=== PATIENT | male | born 1950 | race Caucasian/White ===

== ENCOUNTER 2018-05-22 17:11 | Observation (INO) | payer MEDICARE, BC ==
--- NOTE | 2018-05-22 17:47 | EDM.PDOC ---
ED HPI GENERAL MEDICAL PROBLEM - General Chief Complaint: Upper Extremity Injury/Pain Stated Complaint: FELL GETTING OUT OF THE SHOWER Time Seen by Provider: 05/22/18 17:30 Source of Information: Reports: Patient History Limitations: Reports: No Limitations Right Upper Arm Pain Score (Numeric/FACES): 3 - Related Data Allergies Allergy/AdvReac Type Severity Reaction Status Date / Time contrast dye Allergy Hives Uncoded 05/22/18 17:16 Home Meds: Home Meds Famotidine 1 tab PO DAILY 05/22/18 [History] Gabapentin [Neurontin] 1 tab PO TID 05/22/18 [History] Minoxidil [Loniten] 15 mg PO DAILY 05/22/18 [History] Olmesartan/Hydrochlorothiazide [Benicar HCT 40-25 MG] 1 tab PO DAILY 05/22/18 [ History] Olmesartan/Hydrochlorothiazide [Olmesartan-Hctz 40-25 mg Tab] 1 tab PO DAILY [History] Sotalol [Betapace] 1 tab PO BID 05/22/18 [History] amLODIPine Besylate [Amlodipine Besylate] 1 tab PO DAILY 05/22/18 [History] hydrALAZINE HCl [Hydralazine HCl] 1 tab PO TID 05/22/18 [History] predniSONE [Prednisone] 1 tab PO ASDIRECTED 05/22/18 [History] Past Medical History Cardiovascular History: Reports: Afib, High Cholesterol, Hypertension Gastrointestinal History: Reports: GERD Musculoskeletal History: Reports: Fracture Neurological History: Reports: Other (See Below) Other Neuro History: 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 Musculoskeletal Surgical History: Reports: Hip Replacement, Knee Replacement, Other (See Below) Other Musculoskeletal Surgeries/Procedures:: ankle fracture repair. left knee replace, right hip replace. Social & Family History - Tobacco Use Smoking Status *Q: Never Smoker - Alcohol Use Days Per Week of Alcohol Use: 3 Number of Drinks Per Day: 1 Total Drinks Per Week: 3 - Recreational Drug Use Recreational Drug Use: No Review of Systems - Review of Systems Review Of Systems: See Below Constitutional: Reports: No Symptoms Eyes: Reports: No Symptoms Ears: Reports: No Symptoms Nose: Reports: No Symptoms Mouth/Throat: Reports: No Symptoms Respiratory: Reports: No Symptoms Cardiovascular: Reports: No Symptoms GI/Abdominal: Reports: No Symptoms Genitourinary: Reports: No Symptoms Musculoskeletal: Reports: Arm Pain Neurological: Denies: Confusion, Dizziness, Headache, Numbness, Tingling, Weakness Psychiatric: Reports: No Symptoms ED EXAM, GENERAL - Physical Exam Exam: See Below Free Text/Narrative:: Vernon is an alert and oriented 67 year old male presenting for complaints of right arm pain after a fall in the shower today at 1600. He denies LOC or any other injury. Exam Limited By: No Limitations General Appearance: Alert, WD/WN, Mild Distress Eye Exam: Bilateral Eye: EOMI, Normal Inspection, PERRL Ears: Normal External Exam, Normal Canal, Hearing Grossly Normal, Normal TMs Ear Exam: Bilateral Ear: Auricle Normal, Canal Normal, TM normal Nose: Normal Inspection, Normal Mucosa, No Blood Throat/Mouth: Normal Inspection, Normal Lips, Normal Gums, Normal Oropharynx, Normal Voice, No Airway Compromise Head: Atraumatic, Normocephalic Neck: Normal Inspection, Supple, Non-Tender, Full Range of Motion. No: Lymphadenopathy (R), Lymphadenopathy (L) Respiratory/Chest: No Respiratory Distress, Lungs Clear, Normal Breath Sounds, No Accessory Muscle Use, Chest Non-Tender Cardiovascular: Normal Peripheral Pulses, No Murmur Peripheral Pulses: 2+: Radial (L), Radial (R) Extremities: No Pedal Edema, Normal Capillary Refill, Arm Pain, Other ( deformity with decreased ROM to right arm/humerus. ) Neurological: Alert, Oriented, Normal Cognition Psychiatric: Normal Affect, Normal Mood Skin Exam: Warm, Dry, Intact, Normal Color, No Rash Lymphatic: No Adenopathy Course - Vital Signs Last Recorded V/S: Last Vital Signs Temp 37 C 05/22/18 17:59 Pulse 72 05/22/18 21:05 Resp 18 05/22/18 21:05 BP 126/68 05/22/18 21:05 Pulse Ox 98 05/22/18 21:05 - Orders/Labs/Meds Orders: Active Orders 24 hr Category Date Time Status Admission Status [Patient Status] [ADT] Routine ADT 05/22/18 21:35 Active Shoulder Comp Rt [CR] Stat Exams 05/22/18 17:53 Taken Shoulder wo Cont Rt [CT] Stat Exams 05/22/18 18:56 Taken Meds: Medications Discontinued Medications Generic Name Dose Route Start Last Admin Trade Name Leigh PRN Reason Stop Dose Admin Hydromorphone HCl 1 mg 05/22/18 17:52 05/22/18 18:04 Dilaudid IVPUSH 05/22/18 17:53 1 mg ONETIME ONE Administration Hydromorphone HCl 1 mg 05/22/18 19:47 05/22/18 19:51 Dilaudid IVPUSH 05/22/18 19:48 1 mg ONETIME ONE Administration Ondansetron HCl 4 mg 05/22/18 19:54 05/22/18 19:58 Zofran IVPUSH 05/22/18 19:55 4 mg ONETIME ONE Administration - Radiology Interpretation Free Text/Narrative:: Wet read of right humerus x-ray shows right humeral head impacted fracture. CT Results Date: 05/22/18 (CT impression: Acute, impacted, comminuted, oblique fracture of the surgical neck of the humerus with 20% medial displacement of the distal fracture fragment and mild valgus angulation. No sign of involvement of the articular surface of the humeral head. Minimal distraction of a fracture fragment arising from the superior portion of the lesser tuberosity. No sign of any additional fracture elsewhere in the shoulder. ) - Re-Assessments/Exams Free Text/Narrative Re-Assessment/Exam: 05/22/18 18:53 Shawn. [facility] telephoned back, we will do a scapulary Y x-ray and CT scan. 05/22/18 21:[address] scan report with Corey Kendrick, he recommends cuff and collar splint with jayde wrap right arm against thorax for stabilization. No need for surgical intervention at this time. Patient can follow up with Corey on FridayMay 25 for recheck here at [facility]. 05/22/18 21:35 Dr. Andre contacted for observation admit due to pain and difficulty ambulating secondary to peripheral neuropathy, use of cane with right arm dominant. Dr. Andre in agreement, patient in agreement. Vernon will be admitted as observation with pain control. Departure - Departure Time of Disposition: 21:35 Disposition: Refer to Observation Condition: Fair Clinical Impression: Comminuted right humeral fracture - Discharge Information *PRESCRIPTION DRUG MONITORING PROGRAM REVIEWED*: No *COPY OF PRESCRIPTION DRUG MONITORING REPORT IN PATIENT GUANAKITO: No Referrals: PCP,None [Primary Care Provider] - Forms: ED Department Discharge - My Orders Last 24 Hours: My Active Orders 05/22/18 17:53 Shoulder Comp Rt [CR] Stat 05/22/18 18:56 Shoulder wo Cont Rt [CT] Stat 05/22/18 21:35 Admission Status [Patient Status] [ADT] Routine - Assessment/Plan Last 24 Hours: My Active Orders 05/22/18 17:53 Shoulder Comp Rt [CR] Stat 05/22/18 18:56 Shoulder wo Cont Rt [CT] Stat 05/22/18 21:35 Admission Status [Patient Status] [ADT] Routine Assessment:: Unsteady gait secondary to peripheral neuropathy Dominant right upper extremity Acute, impacted, comminuted, oblique fracture of the surgical neck of the humerus with 20% medial displacement of the distal fracture fragment and mild valgus angulation. Minimal distraction of a fracture fragment arising from the superior portion of the lesser tuberosity. Plan: Patient will be admitted to second floor per Dr. Andre. Orders written.
[2018-05-22] MEDS ORDERED: HYDROmorphone 1 MG/ML Syringe IVPUSH ONE ×2 (17:52→19:47)
[2018-05-22] MEDS ORDERED: Ondansetron 4 MG/2 ML SDV IVPUSH ONE (19:54)
[2018-05-22] MEDS ORDERED: Acetaminophen 325 MG Tab PO PRN (22:50)
[2018-05-22] MEDS ORDERED: Ondansetron 4 MG/2 ML SDV IVPUSH PRN (22:50)
[2018-05-22] MEDS: oxyCODONE 5 MG Tab PO PRN (23:20)
--- NOTE | 2018-05-23 01:00 | HP ---
IDENTIFYING DATA: Mr. Vernon Altamirano is a 67-year-old single male from [place], [place]. CHIEF COMPLAINT: "I fell and hurt my arm." HISTORY OF PRESENT ILLNESS: Adult male, semi retired, was visiting friends on [address] near [place], [place]. As he showered this evening, he was attempting to exit the shower and slipped, pulling a tension rhoda down, falling, and striking his face and proximal right arm on the floor. He had resultant right arm pain and inability to rise. Emergency medical personnel were contacted and he was transferred to the emergency room for evaluation. He was found to have evidence of an impacted proximal right humeral fracture without displacement and for reasons of pain was unable to care for self. Therefore, he was admitted this evening for pain management and assistance with ADL performance. He does report a history of chronic lower extremity weakness and paresthesias secondary to a vertebral AVM requiring surgical correction in 2011. He has been left with persistent lower extremity weakness since that time. Additional orthopedic history is significant for left total knee arthroplasty, right total hip arthroplasty, and surgical repair of an ankle fracture with posttraumatic arthritis noted. Additionally, he has a history of prior paroxysmal atrial fibrillation, now well controlled on sotalol therapy as well as essential hypertension, hyperlipidemia, and prior prostate surgery requiring surgical prostatectomy. HABITS: Nonsmoker. Caffeine intake of less than 1 drink per day. Alcohol use of 3 drinks weekly. ALLERGIES: REPORTED TO CONTRAST IV DYE. MEDICATIONS: Famotidine 40 mg daily, gabapentin 100 mg t.i.d., minoxidil 15 mg daily, olmesartan with hydrochlorothiazide 40/25 mg daily, sotalol 1 tablet b.i.d., amlodipine 5 mg daily, hydralazine 1 tablet t.i.d., prednisone 10 mg daily. SOCIAL HISTORY: Single, residing independently in his [place] residence. 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 His son assists with the day-to-day operation. Generally performs ADLs independently, drives without difficulty. FAMILY HISTORY: Noncontributory. REVIEW OF SYSTEMS: NEUROLOGIC: No history of strokes, seizures, headaches, glaucoma, cataracts, or visual impairment. Chronic lower extremity weakness is noted. CARDIAC HISTORY: Hypertension and hyperlipidemia. Denies a history of diabetes, rheumatic fever, MD, or congestive heart failure. Does have a noted history of congenital heart murmur reporting echocardiogram of 6 months ago showed stable normal cardiac function. RESPIRATORY: No history of asthma, emphysema, or recent respiratory infections. GI: Denies dyspepsia, nausea, hepatitis, jaundice, gallbladder disease, diarrhea, melena, or hematochezia. : No urinary incontinence. Previous prostatectomy for localized prostate cancer, now in remission. No nocturia. MUSCULOSKELETAL: Prior left knee and right hip replacements as well as surgical repair of right ankle fracture. Additionally, he has had previous lumbar spine surgery for reasons of an AVM with steal syndrome. PHYSICAL EXAMINATION: GENERAL: Appearance is that of an adult male, now resting comfortably in bed. VITAL SIGNS: Temperature 37 degrees centigrade, pulse 72, respiratory rate 18, blood pressure 126/68, pulse 98. HEENT: Oral mucosa is moist and pink. No facial asymmetries. Hearing is intact. NECK: Brisk carotid pulses. No bruits or JVD. LUNGS: Clear, nontachypneic, symmetrical. HEART: Regular without gallops. Controlled rate. Grade 2-3 harsh outflow murmur at the aortic area with radiation to the carotid areas. No diastolic murmurs. ABDOMEN: Soft, nontender, nondistended. No organomegaly. Good femoral pulses. No abdominal bruits. SKIN: Warm and pink with good turgor. Intact. No rashes. No pitting edema. EXTREMITIES: Good radial, posterior tibial, and dorsal pedal pulses. He has a right arm swap and mobilizer. Proximal right humeral pain reported by the patient with intact capillary refill. DIAGNOSTIC DATA: X-ray revealed a right impacted humeral fracture without evidence of other bony injury on accompanying scapular x-ray and CT imaging. IMPRESSIONS: 1. Impacted right humeral fracture secondary to fall. 2. History of lumbar spine AVM with steal syndrome and resultant chronic lower extremity weakness. 3. Prior left total knee arthroplasty. 4. Prior right hip arthroplasty. 5. Hypertension. 6. History of paroxysmal atrial fibrillation, well controlled on sotalol. Not requiring Coumadin anticoagulant therapy. 7. Remote history of prostate cancer. No evidence of recurrent disease with previous prostatectomy. PLAN: The patient is admitted to observation status through the night for rest and pain management. We will provide dietary intake and liquids as tolerated. If nausea develops, p.r.n. Zofran is available for use. Additionally, we will offer oxycodone and/or acetaminophen on a p.r.n. basis for pain. Arm sling immobilizer remains in place with ice to the proximal humeral region. Full code status is instituted. He is to call nurses for assistance with voiding and ambulation. Would anticipate discharge in 24 to 48 hours. The patient would like to consider travel with acquaintances automobile back to [place], [place] and follow up with his local medical caregivers including [facility]. If pain is well managed, we will assist in his discharge and transfer home for a followup. Jae Andre MD /[id number]
[2018-05-23] MEDS: oxyCODONE 5 MG Tab PO PRN (06:50)
--- NOTE | 2018-05-23 07:38 | DISCH ---
IDENTIFYING DATA: Adult single male from [place], [place] visiting friends in [facility], who presented to the emergency room the evening of 05/22/2018 with complaints of proximal right arm pain following a fall in the shower. He had no other injuries sustained. He denied loss of consciousness. The fall was caused by a slip in the shower. He does have an accompanying history of paroxysmal atrial fibrillation, well controlled on sotalol as well as essential hypertension, a remote history of prostate cancer, now in remission, and previous total hip and knee arthroplasties. Additionally, he has lower extremity weakness secondary to a vertebral arteriovenous fistula with steal syndrome treated with surgical repair. PHYSICAL EXAMINATION: GENERAL: On admission, appearance is that of an adult male, in moderate discomfort when seen in the hospital bed. VITAL SIGNS: Temperature 37 degrees Fahrenheit, pulse 72, respiratory rate 18, blood pressure 126/68. HEENT: Hearing and visual acuity were intact. No facial asymmetry. Speech was clear. No trauma to the head. NECK: Brisk regular carotid pulses. Good range of motion. No injury. LUNGS: Clear. Non-tachypneic. HEART: Regular without murmurs or gallops noted. ABDOMEN: Benign. No organomegaly. Good femoral pulses. and RECTAL: Omitted. EXTREMITIES: Good pulses. No pitting edema. No contusions evident. He had proximal right humeral pain to palpation. IMAGING: X-ray did confirm a minimally displaced proximal right humeral fracture without other recognized bony injury. HOSPITAL COURSE: Mr. Altamirano was admitted for assistance with performance of ADLs and pain management. He was placed on observation status through the night. Ice to the arm was provided in addition to a mobilizing right arm sling and splint. He was comfortable with use of a single dose of oxycodone and slept reasonably well through the nighttime hours. The following morning, he had modest discomfort at the proximal right arm secondary to his fracture, but desired discharge to home with acquaintances and anticipated followup with his hometown physician in [place], [place]. DISCHARGE INSTRUCTIONS: Discharged on 05/23/2018. Condition: Stable. Diet: Low-sodium diet. Activity: May ambulate, avoid driving. Does have family use available to provide assistance. Follow up with hometown physician early this week for ongoing management of proximal arm fracture. Copy of x-ray to accompany patient. Resume usual home medications. Additionally, a prescription for oxycodone 10 mg q.4 hours p.r.n. pain, #25 dispensed. ADMITTING DIAGNOSES: 1. Proximal right humeral fracture secondary to fall. 2. Paroxysmal atrial fibrillation. 3. Hypertension. 4. Hyperlipidemia. 5. History of prostate cancer in remission following remote history of prostatectomy. 6. History of osteoarthritis with previous left knee and right hip arthroplasties. 7. History of lower extremity weakness secondary to spinal arteriovenous malformation and steal syndrome. DISCHARGE DIAGNOSES: 1. Proximal right humeral fracture secondary to fall. 2. Paroxysmal atrial fibrillation. 3. Hypertension. 4. Hyperlipidemia. 5. History of prostate cancer in remission following remote history of prostatectomy. 6. History of osteoarthritis with previous left knee and right hip arthroplasties. 7. History of lower extremity weakness secondary to spinal arteriovenous malformation and steal syndrome.
[2018-05-23] MEDS ORDERED: Hydrochlorothiazide 25 MG Tab PO SCH (09:00)
[2018-05-23] MEDS ORDERED: Olmesartan 20 MG Tab PO SCH (09:00)
[2018-05-23] MEDS ORDERED: Minoxidil 2.5 MG Tab PO SCH (09:00)
[2018-05-23] MEDS ORDERED: Sotalol 80 MG Tab PO SCH (09:00)
[2018-05-23] MEDS ORDERED: Famotidine 20 MG Tab PO SCH (09:00)
[2018-05-23] MEDS ORDERED: amLODIPine 10 MG Tab PO SCH (09:00)
[2018-05-23] MEDS ORDERED: Gabapentin 100 MG Cap PO SCH (09:00)
[2018-05-23] MEDS ORDERED: hydrALAZINE 25 MG Tab PO SCH (09:00)
--- NOTE | 2018-05-25 09:42 | CR ---
Shoulder Comp Rt CLINICAL HISTORY: Fall, right shoulder pain FINDINGS: There is a comminuted displaced fracture of the proximal humerus. There is some deformity a t the elbow joint which is likely degenerative. IMPRESSION: Comminuted displaced fracture of the right proximal humerus.
== END 2018-05-23 08:39 | disposition home or self-care (01) ==
LOC: JP.ED 17:11 → JP.MS 21:35
PROVIDERS: ADMIT Family Medicine; ATTEND Internal Medicine
DX: S42.201A Unspecified fracture of upper end of right humerus, initial encounter for closed fracture (principal); I48.0 Paroxysmal atrial fibrillation; I10 Essential (primary) hypertension; E78.5 Hyperlipidemia, unspecified; Z79.899 Other long term (current) drug therapy; Z91.041 Radiographic dye allergy status; W18.2XXA Fall in (into) shower or empty bathtub, initial encounter
CPT/HCPCS: 73030; 73200; 96374; 96375; 96376; 99285; A9270; J1170; J2405